=== PATIENT | male | born 1960 | race African-American/Black ===

== ENCOUNTER 2018-04-03 04:21 | Observation (INO) | payer OTHER ==
[~2018-04-03] VITALS: Ht 180.3 cm; Wt 80.7 kg
[2018-04-03] MEDS ORDERED: SODIUM CHLORIDE 0.9% 1000ML 1,000 ML IV STA (05:49)
--- NOTE | 2018-04-03 06:05 | Diagnostic Imaging Report ---
EXAM: CT ABDOMEN AND PELVIS without IV CONTRAST INDICATION: Hematuria COMPARISON: None TECHNIQUE: The abdomen and pelvis were scanned using a multidetector helical scanner. Coronal and sagittal reformations were obtained. Dose modulation, iterative reconstruction, and/or weight based adjustment of the mA/kV was utilized to reduce the radiation dose to as low as reasonably achievable. Routine protocol performed. IV Contrast: None Oral Contrast: None CTDIvol has been reviewed. It is below the limits set by the Radiation Protocol Committee (RPC). FINDINGS: LOWER THORAX: No consolidations LIVER: No masses BILIARY: Normal gallbladder. No ductal dilation. SPLEEN: No masses PANCREAS: No masses ADRENALS: No nodules RIGHT KIDNEY: No nephroureterolithiasis or hydronephrosis. Simple cyst measuring 1.3 cm inferior pole. LEFT KIDNEY: No nephroureterolithiasis or hydronephrosis. Simple cyst interpolar region measuring 2.2 cm. GI TRACT: No wall thickening or obstruction. Normal appendix. VESSELS: Unremarkable PERITONEUM/RETROPERITONEUM: No free air or fluid LYMPH NODES: No lymphadenopathy REPRODUCTIVE ORGANS: The prostate is enlarged to 5.8 cm in transverse diameter. BLADDER: A Patel catheter is in place within the bladder. The bladder contains hyperdense material consistent with blood. SOFT TISSUES: Normal BONES: No suspicious bone lesions. IMPRESSION: 1. High density material within the bladder consistent with blood. Recommend further evaluation for possible underlying bladder mass. 2. No nephroureterolithiasis or hydronephrosis. Signed by: Dr. Melissa Carbajal M.D. on 04/03/2018 6:02 AM
[2018-04-03 09:16] VITALS: BP 139/99
[2018-04-03 09:17] VITALS: BP 139/99
[2018-04-03 09:21] VITALS: BP 139/99
[2018-04-03 11:51] VITALS: BP 112/76
[2018-04-03] MEDS ORDERED: ACETAMINOPHEN/CODEINE 300MG - 30MG TAB PO PRN (15:30)
[2018-04-03] MEDS ORDERED: HYDRALAZINE HCL 20 MG/ML VIAL IV PRN (15:30)
[2018-04-03] MEDS ORDERED: ACETAMINOPHEN 325 MG TAB PO PRN (15:30)
[2018-04-03 16:28] LABS: CLARITY,URINE TURBID (CLEAR); COLOR,URINE AMBER (YELLOW)
[2018-04-03 16:29] LABS: BILIRUBIN,URINE 2+ (NEGATIVE); KETONES,URINE TRACE (NEGATIVE); LEUKOCYTE ESTERASE ,URINE 1+ (NEGATIVE); NITRITE,URINE NEGATIVE (NEGATIVE); PROTEIN,URINE DIPSTICK 2+ (NEGATIVE); URINE UROBILINOGEN 1 mg/dL (0.2 - 1)
[2018-04-03 16:31] LABS: BACTERIA,URINE MODERATE /HPF; RBC,URINE >50 /HPF (0-5)
[2018-04-03 16:53] VITALS: BP 119/81
[2018-04-03] MEDS: SODIUM CHLORIDE 0.9% 1000ML 1,000 ML IV SCH ×2 (17:28→20:50)
[2018-04-03] MEDS: CEFTRIAXONE SOD 1 GM VIAL IV SCH (17:29)
[2018-04-03] MEDS: FAMOTIDINE 20 MG TAB PO SCH (17:29)
[2018-04-03] MEDS: ONDANSETRON HCL INJ 2 MG/ML VIAL IV PRN (17:38)
[2018-04-04] VITALS: BP 113/70
[2018-04-04] MEDS: CEFTRIAXONE SOD 1 GM VIAL IV SCH ×2 (03:52→17:14)
[2018-04-04 04:00] VITALS: BP 110/69
[2018-04-04 05:41] LABS: BASOPHILS % 0.6 % (0.0-1.0); EOSINOPHILS # (AUTO) 0.1 (0.0-0.4); EOSINOPHILS % 1.9 % (0.0-6.0); HEMATOCRIT 42.7 % (38.2-49.6); HEMOGLOBIN 13.9 g/dL (14.0-18.0); LYMPHOCYTES % 43.4 % (18.0-39.1); MEAN CORPUSCULAR HEMOGLOBIN 30.3 pg (28-32); MEAN CORPUSCULAR HGB CONC 32.6 g/dL (31-35); MONOCYTES # (AUTO) 0.8 (0.2-0.8); MONOCYTES % 11.9 % (4.4-11.3); NEUTROPHILS # (AUTO) 2.9 (2.1-6.9); NEUTROPHILS % 41.9 % (38.7-80.0); PLATELET COUNT 206 x10e3/uL (140-360); RED BLOOD COUNT 4.59 x10e6/uL (4.3-5.7); RED CELL DISTRIBUTION WIDTH 13.2 % (11.7-14.4)
[2018-04-04 06:02] LABS: ANION GAP 14.2 mmol/L (8-16); BLOOD UREA NITROGEN 18 mg/dL (7-26); BUN/CREATININE RATIO 16 (6-25); CALCIUM 8.5 mg/dL (8.4-10.2); CARBON DIOXIDE 23 mmol/L (22-29); CHLORIDE 107 mmol/L (98-107); CREATININE, SERUM 1.11 mg/dL (0.72-1.25); EST GLOMERULAR FILTRATION RATE > 60 ML/MIN (60-); GLUCOSE 98 mg/dL (74-118); MAGNESIUM 1.9 MG/DL (1.3-2.1); POTASSIUM 4.2 mmol/L (3.5-5.1); SODIUM 140 mmol/L (136-145)
[2018-04-04] MEDS: FAMOTIDINE 20 MG TAB PO SCH ×2 (08:17→17:14)
[2018-04-04 08:31] VITALS: BP 110/77
[2018-04-04 08:38] VITALS: BP 110/77
[2018-04-04] MEDS: SODIUM CHLORIDE 0.9% 1000ML 1,000 ML IV SCH (11:45)
[2018-04-04 12:27] VITALS: BP 114/78
[2018-04-04 17:07] VITALS: BP 127/84
[2018-04-04] MEDS: ONDANSETRON HCL INJ 2 MG/ML VIAL IV PRN (17:14)
[2018-04-04] MEDS ORDERED: CEFUROXIME250 MG PO (19:31)
[2018-04-04] MEDS ORDERED: VITAMIN C500 M1 PO (19:33)
--- NOTE | 2018-04-05 02:23 | Discharge Summary ---
HISTORY: Mr. Vanessa is a pleasant 57-year-old male that came in with chief complaint of hematuria, which began on the night of 04/02/2018. The patient stated that it had happened before most recently a couple of months ago, but he had less hematuria. Per the history and physical, he had a negative cystoscopy 15 years ago and came to the emergency room when he was no longer able to pass urine. Patel catheter was placed and Urology was consulted and the patient denied any dysuria, discharge, frequency, or fever. He has a past medical history of hyperlipidemia and occasional alcohol use. ADMITTING DIAGNOSES 1. Hematuria. 2. Urinary tract infection. 3. Bradycardia. The patient states he is an avid runner. He has a thin body habitus and the bradycardia was asymptomatic. CONSULTING PHYSICIAN: Dr. Pitt of Urology. PERTINENT DIAGNOSTICS AND LABS: Include a urinalysis which was collected on April 03, which showed jolly urine. Specific gravity 1.03, urine protein 2+, trace amount of ketones, 4+ blood, 2+ bilirubin, 1+ leukocyte esterase, RBC greater than 50, WBC 11 to 20, and moderate amount of bacteria. Yesterday; sodium 140, potassium 4.2, chloride 107, CO2 of 23, BUN 18, and creatinine 1.11. GFR greater than 60, glucose 98, and hemoglobin A1c today was 5.2. Yesterday calcium was 8.5 and magnesium 1.9. WBC 6.8, hemoglobin 13.9, hematocrit 42.7, and platelets 206,000. The urine culture and sensitivity preliminary report is showing no growth. A CT of the abdomen and pelvis was completed yesterday, which showed high-density material within the bladder, consistent with blood. Further evaluation is recommended for possible underlying bladder mass. No nephroureterolithiasis or hydronephrosis. HOSPITAL COURSE: Case was discussed with the patient's nurse, who said that Dr. Pitt had seen the patient today and indicated that he could go home. Patel catheter was removed earlier today without any issue. Patient was told to drink plenty of water and as he has been on Rocephin here, we will continue with p.o. cefuroxime at home as well as vitamin C. Subjectively, the patient has no new complaints. The hematuria has improved considerably. Denies dysuria. PHYSICAL EXAMINATION GENERAL: Unremarkable for abnormalities. No acute distress. HEENT: Extraocular eye movements are intact. NECK: Supple. LUNGS: Clear to auscultation. CARDIOVASCULAR: Regular rate and rhythm. No murmur. ABDOMEN: Bowel sounds are positive. Soft, nontender. EXTREMITIES: Without pitting edema. No clubbing, cyanosis, or notable swelling. No signs or symptoms of DVT. NEUROLOGIC: GCS 15, nonfocal. DIET: The patient will be discharged on a regular diet. ACTIVITY LEVEL: As tolerated. DISCHARGE MEDICATIONS: As aforementioned. FOLLOWUP: The patient to follow up with Dr. Pitt as directed. Dictated by: Karthik Ramos NP Job#: [id number]
== END 2018-04-04 19:20 | disposition home or self-care (01) ==
LOC: FSED 04:21 → ERHOLD 06:39 → IMCU 08:49
PROVIDERS: ADMIT Internal Medicine; ATTEND Internal Medicine
DX: N39.0 Urinary tract infection, site not specified (principal); R31.0 Gross hematuria; E78.5 Hyperlipidemia, unspecified; Z88.5 Allergy status to narcotic agent; R00.1 Bradycardia, unspecified
CPT/HCPCS: 36415; 51700; 74176; 80048; 80053; 81001; 81003; 83036; 83735; 85025 ×2; 85610; 87086; 99284; G0378 ×2; J0696 ×2; J2405 ×2; J7030